=== PATIENT | male | born 1965 | race Caucasian/White ===

== ENCOUNTER → 2021-08-31 | Emergency (ER) | payer MEDICAID ==
[~2021-08-31] VITALS: Ht 177.8 cm; Wt 90.9 kg
[~2021-08-31] MED LIST: ASPI-1009 PO; AZIT-83 PO; CHOL400T57 PO; EXEN2VIA SUBCUT; FENO134C PO; INSU100V36 SQ; LANTUS SQ; LISI-222 PO; LORA0.5T PO; METF-504 PO
[2021-08-31 14:06] VITALS: BP_SYST 131
--- NOTE | 2021-08-31 16:19 | NUR ---
pt left without being seen by a provider.
== END | disposition left against medical advice (07) ==
LOC: ER 13:30
DX: U07.1 COVID-19 (principal); Z53.21 Procedure and treatment not carried out due to patient leaving prior to being seen by health care provider

== ENCOUNTER 2021-09-03 20:00 | Emergency (ER) | payer MEDICAID ==
[~2021-09-03] VITALS: Ht 177.8 cm; Wt 90.9 kg
[~2021-09-03 20:00] MED LIST changes: -AZIT-83 PO
[2021-09-03] MEDS ORDERED: acetaminophen 325mg tablet PO STA (21:07)
[2021-09-03] MEDS ORDERED: aspirin 81mg tab.chew PO ONE (21:10)
[2021-09-03] MEDS ORDERED: iohexol 350MG/ML 100ml bottle IV ONE (21:14)
[2021-09-03 21:26] LABS: BASOPHILS % (AUTO) 0.4 % (0-1); EOSINOPHILS % (AUTO) 0.1 % (0-6); HEMATOCRIT 48.6 % (42.0-52.0); HEMOGLOBIN 16.9 g/dl (14.0-17.9); LYMPHOCYTES # (AUTO) 0.9 X10'3 (1.1-4.8); LYMPHOCYTES % (AUTO) 25.3 % (21-51); MEAN CORPUSCULAR HEMOGLOBIN 30.1 PG (27.0-31.0); MEAN CORPUSCULAR HGB CONC 34.8 g/dL (33.0-36.5); MEAN CORPUSCULAR VOLUME 86.5 FL (78-98); MEAN PLATELET VOLUME 8.8 FL (7.4-10.4); MONOCYTES # (AUTO) 0.4 X10'3 (0-0.9); MONOCYTES % (AUTO) 11.3 % (2-12); NEUTROPHILS # (AUTO) 2.2 X10'3 (1.8-7.7); NEUTROPHILS % (AUTO) 62.9 % (42-75); PLATELET COUNT 132 X10'3 (140-440); RED BLOOD COUNT 5.61 X10'6 (4.70-6.10); RED CELL DISTRIBUTION WIDTH 13.1 % (11.5-14.5); WHITE BLOOD COUNT 3.5 X10'3 (4.5-11.0)
[2021-09-03 21:42] LABS: D-DIMER 0.67 MG/L FEU (0-0.50); PARTIAL THROMBOPLASTIN TIME 30 SECONDS (22-32)
[2021-09-03 21:46] LABS: ALANINE AMINOTRANSFERASE 40 U/L (12-78); ALBUMIN 3.7 G/DL (3.4-5.0); ALBUMIN/GLOBULIN RATIO 0.9 (1.1-1.5); ALKALINE PHOSPHATASE 100 IU/L (46-116); ANION GAP 12 (8-16); ASPARTATE AMINO TRANSFERASE 38 U/L (10-37); BILIRUBIN,TOTAL 0.5 MG/DL (0.1-1.0); BLOOD UREA NITROGEN 16 MG/DL (7-18); BUN/CREATININE RATIO 11.1 (5.4-32.0); CALCIUM 9.2 MG/DL (8.5-10.1); CHLORIDE 96 MMOL/L (99-107); CREATININE 1.44 MG/DL (0.60-1.10); GLUCOSE 154 MG/DL (70-104); POTASSIUM 4.5 MMOL/L (3.5-5.1); SODIUM 136 MMOL/L (135-145); TOTAL CARBON DIOXIDE 28.3 MMOL/L (24-32); eGFR 51 ML/MIN
[2021-09-03 21:49] LABS: MAGNESIUM 1.7 MG/DL (1.5-2.4)
--- NOTE | 2021-09-03 22:28 | NUR ---
Note jazmin in EDM - 09/03/21 at 2231 by NICKO Patient wound vac not functioning. Pt turned off her wound vac. Occlusive dressing removed, area cleaned with NS and gauze. Intact skin coated with Maalox to protect skin from stomach contents. Wound covered with ABD pad and secured with tegaderm at the borders. Will continue to monitor until wound care can assess.
[2021-09-03] MEDS ORDERED: azithromycin 250mg tablet PO ONE (22:50)
[2021-09-03] MEDS ORDERED: DEXAMETHASONE 6 MG TABLET PO ONE (22:50)
[2021-09-03] MEDS ORDERED: DEXAMETHASONE 6 MG TABLET PO SCH (22:50)
[2021-09-03] MEDS ORDERED: CASIRIVIMAB/IMDEVIMAB inject. 10 ML in normal saline 100ml IV soln 100 ML IV ONE (22:50)
[2021-09-03] MEDS ORDERED: AZIT-83 PO (22:56)
[2021-09-04 00:47] VITALS: BP 129/91
== END 2021-09-04 01:02 | disposition home or self-care (01) ==
LOC: ER 20:01
DX: U07.1 COVID-19 (principal); J12.82 Pneumonia due to coronavirus disease 2019; I10 Essential (primary) hypertension; E11.9 Type 2 diabetes mellitus without complications; Z56.0 Unemployment, unspecified
CPT/HCPCS: 36415; 71045; 71275; 80053; 83605; 83735; 84145; 84484; 85025; 85379; 85610; 85730; 86140; 87040; 93005; 99291; M0243; Q0244; Q9967; J8540

== ENCOUNTER 2023-06-19 14:35 | Emergency (ER) | payer MEDICAID ==
[~2023-06-19] VITALS: Ht 180.3 cm; Wt 86.3 kg
[~2023-06-19 14:35] MED LIST changes: -FENO134C PO; +FENO134C21 PO
[2023-06-19 14:44] VITALS: TEMP 98.9
--- NOTE | 2023-06-19 15:01 | NUR ---
Stroke scale negative
[2023-06-19 15:03] LABS: BASOPHILS % (AUTO) 0.4 % (0-1); EOSINOPHILS % (AUTO) 0.6 % (0-6); HEMATOCRIT 48.7 % (42.0-52.0); LYMPHOCYTES # (AUTO) 1.6 X10'3 (1.1-4.8); LYMPHOCYTES % (AUTO) 39.2 % (21-51); MEAN CORPUSCULAR HEMOGLOBIN 29.8 PG (27.0-31.0); MEAN CORPUSCULAR VOLUME 85.1 FL (78-98); MEAN PLATELET VOLUME 8.6 FL (7.4-10.4); MONOCYTES # (AUTO) 0.5 X10'3 (0-0.9); MONOCYTES % (AUTO) 11.8 % (2-12); PLATELET COUNT 144 X10'3 (140-440); RED BLOOD COUNT 5.72 X10'6 (4.70-6.10); RED CELL DISTRIBUTION WIDTH 13.1 % (11.5-14.5); WHITE BLOOD COUNT 4.1 X10'3 (4.5-11.0)
[2023-06-19 15:21] LABS: PRO BRAIN NATRIURETIC PEPTIDE < 30 PG/ML (0-125)
[2023-06-19 15:48] LABS: ALANINE AMINOTRANSFERASE 28 U/L (12-78); ALBUMIN 3.6 G/DL (3.4-5.0); ALBUMIN/GLOBULIN RATIO 0.8 (1.1-1.5); ALKALINE PHOSPHATASE 104 IU/L (46-116); ANION GAP 7 (8-16); ASPARTATE AMINO TRANSFERASE 18 U/L (10-37); BILIRUBIN,TOTAL 0.5 MG/DL (0.1-1.0); BLOOD UREA NITROGEN 16 MG/DL (7-18); BUN/CREATININE RATIO 14.4 (10.0-20.0); CALCIUM 9.4 MG/DL (8.5-10.1); CHLORIDE 94 MMOL/L (99-107); CREATININE 1.11 MG/DL (0.60-1.10); GLUCOSE 281 MG/DL (70-104); POTASSIUM 4.4 MMOL/L (3.5-5.1); SODIUM 131 MMOL/L (135-145); TOTAL CARBON DIOXIDE 30.1 MMOL/L (24-32); TOTAL PROTEIN 7.9 G/DL (6.4-8.2); eCRCL 80 ML/MIN; eGFR 69 ML/MIN
[2023-06-19 15:55] LABS: PRO BRAIN NATRIURETIC PEPTIDE < 30 PG/ML (0-125)
[2023-06-19] MEDS ORDERED: ondansetron/PF 4mg/2ml inj IV ONE (17:10)
[2023-06-19] MEDS ORDERED: normal saline 1000ml 1,000 ML IV ONE ×2 (17:25)
[2023-06-19 19:36] LABS: BILIRUBIN,URINE NEGATIVE (Neg); CLARITY,URINE CLEAR (Clear); COLOR,URINE YELLOW (Yellow); GLUCOSE, URINE >=1000 mg/dl (Neg); KETONES,URINE 40 mg/dl (Neg); LEUKOCYTE ESTERASE ,URINE NEGATIVE (Neg); NITRITES, URINE NEGATIVE (Neg); OCCULT BLOOD,URINE NEGATIVE (Neg); PROTEIN,URINE NEGATIVE (Neg); UROBILINOGEN,URINE 0.2 E.U/dL (0.2-1.0)
[2023-06-19 19:37] LABS: UA COLLECTION TYPE VOIDED
[2023-06-19 20:17] LABS: BACTERIA,URINE NONE SEEN /HPF (Neg); RBC,URINE 0-2 /HPF (0-2); SQUAMOUS EPITHELIAL CELL,UR FEW /LPF (FEW); WBC,URINE 0-4 /HPF (0-4)
[2023-06-19 21:24] VITALS: BP 130/74; PULSE 76; RESP 11; O2SAT 99
== END 2023-06-19 21:26 | disposition home or self-care (01) ==
LOC: ER 14:36
DX: R42 Dizziness and giddiness (principal); Z20.822 Contact with and (suspected) exposure to COVID-19; E86.0 Dehydration; I10 Essential (primary) hypertension; E11.9 Type 2 diabetes mellitus without complications; Z56.0 Unemployment, unspecified; Z79.899 Other long term (current) drug therapy
CPT/HCPCS: 36415; 70450; 71045; 80053; 81001; 83880; 84484; 85025; 87811; 93005; 96361; 96374; 99285; J2405; J7030